=== PATIENT | male | born 1970 | race Caucasian/White ===

== ENCOUNTER 2019-11-26 09:13 | Outpatient (CLI) | payer MEDICAID, SELFPAY ==
--- NOTE | 2019-11-26 09:30 | USCV_ITS ---
Ryan Zuniga Age: 49 Gender: M : 1970 Exam Date: 11/26/2019 09:37 Ordering Phys: Paloma Reyes MD ([email or web address]) Technologist: Terrie De Los Santos [place]am [place] [facility] [place]ication: HOCM, h/o mitral valve repair, s/p myectomy BP: / HR: 64 Rhythm: Sinus Technical Quality: Adequate MEASUREMENTS (Male / Female) Normal Values 2D ECHO LV Diastolic Diameter PLAX 4.2 cm 4.2 - 5.9 / 3.9 - 5.3 cm LV Systolic Diameter PLAX 3.5 cm LV Chamber Size 2.6 cm IVS Diastolic Thickness 2.0 cm 0.6 - 1.0 / 0.6 - 0.9 cm IVS Systolic Thickness 1.8 cm LVPW Diastolic Thickness 1.7 cm 0.6 - 1.0 / 0.6 - 0.9 cm LVPW Systolic Thickness 1.9 cm RV Chamber Size 2.4 cm LVOT Diameter 2.1 cm LV Ejection Fraction 2D Teich 35.4 % LV Ejection Fraction MOD 2C 42.9 % LV Ejection Fraction 2C AL 44.1 % LA Diameter 4.6 cm LA Width 3.1 cm LA Height 4.6 cm RA Width 3.3 cm RA Height 4.8 cm Aorta at Sinotubular Diameter 3.5 cm M-MODE LV Diastolic Diameter MM 4.4 cm 4.2 - 5.9 / 3.9 - 5.3 cm LV Systolic Diameter MM 3.2 cm LV Ejection Fraction MM Teich 53.6 % IVS Diastolic Thickness MM 1.3 cm 0.6 - 1.0 / 0.6 - 0.9 cm IVS Systolic Thickness MM 2.2 cm LVPW Diastolic Thickness MM 2.0 cm 0.6 - 1.0 / 0.6 - 0.9 cm LVPW Systolic Thickness MM 2.2 cm RV Diastolic Diameter MM 1.9 cm Aortic Annulus Diameter 4.0 cm LA Ao Ratio MM 1.1 MV E Point Septal Separation 0.6 cm DOPPLER AV Peak Velocity 162.0 cm/s LVOT Peak Velocity 163.0 cm/s AV Area Cont Eq vti 4.0 cm squared AV Area Cont Eq pk 3.4 cm squared MV Area PHT 5.8 cm squared Mitral E to A Ratio 1.1 MV E' Velocity 6.0 cm/s Mitral E to MV E' Ratio 20.3 Mitral E to LV E' Lateral Ratio 16.0 Mitral E to LV E' Septal Ratio 28.4 TR Peak Velocity 269.2 cm/s TR Peak Gradient 29.0 mmHg TR Mean Velocity 193.9 cm/s TR Mean Gradient 17.0 mmHg TR Velocity Time Integral 68.7 cm TV Peak E Velocity 60.0 cm/s Right Atrial Pressure 5.0 mmHg Pulmonary Artery Systolic Pressu 34.0 mmHg PV Peak Velocity 88.0 cm/s RV Acceleration Time 0.1 s RV Ejection Time 0.3 s RV AcT/ET 0.4 FINDINGS Left Ventricle Normal left ventricular cavity size and systolic function. Left ventricular ejection fraction is estimated at 70-75 %. There is severe concentric left ventricular hypertrophy. No regional wall motion abnormalities. Abnormal septal motion consistent with conduction abnormality/ post op state. Grade II diastolic dysfunction, moderately elevated filling pressures. Right Ventricle Normal right ventricular size and systolic function. Right ventricular systolic pressure 34 mmHg. ICD wire visualized in the right ventricle. Right Atrium Normal right atrial size. Right atrial pressure estimated at 3 mmHg. ICD wire in the right atrial cavity. Left Atrium Mildly increased left atrial size. Mitral Valve Thickened and fixed posterior mitral valve leaflet consistent with previous repair with Gilberto stitch (03/11/2017). No systolic anterior motion of mitral valve leaflets. No mitral valve stenosis. Mild mitral valve regurgitation. Aortic Valve Structurally normal trileaflet aortic valve. No aortic valve stenosis. Left ventricular outflow tract gradient of 52 mmHg with Valsalva. Mild aortic valve regurgitation. Tricuspid Valve Structurally normal tricuspid valve. Trace tricuspid valve regurgitation. Pulmonic Valve Structurally normal pulmonic valve. No pulmonary valve stenosis. Trace pulmonary valve regurgitation. Pericardium No pericardial effusion. Aorta Upper normal sized aortic root and normal sized proximal ascending aorta. CONCLUSIONS 1. Normal left ventricular cavity size and systolic function. Left ventricular ejection fraction is estimated at 70-75 %. There is severe concentric left ventricular hypertrophy. No regional wall motion abnormalities. Grade II diastolic dysfunction, moderately elevated filling pressures. 2. Previous mitral valve repair with mild mitral valve regurgitation. 3. Provoked left ventricular outflow tract gradient of 52 mmHg. Mild aortic valve regurgitation. 4. Pulmonary artery pressure estimated at 34 mmHg. 5. No prior similar studies to compare. Paloma Reyes MD (Electronically Signed) Final Date: 29 November 2019 17:36 S
== END 2019-11-26 09:14 | disposition home or self-care (01) ==
LOC: RAD 09:16
PROVIDERS: Family Provider Nurse Practitioner Family; PCP Nurse Practitioner Family; Visit Provider Internal Medicine Cardiovascular Disease
DX: I42.2 Other hypertrophic cardiomyopathy (principal); Z98.890 Other specified postprocedural states; I51.81 Takotsubo syndrome; Z95.2 Presence of prosthetic heart valve; I35.1 Nonrheumatic aortic (valve) insufficiency
CPT/HCPCS: 93306

== ENCOUNTER → 2020-02-06 14:56 | Outpatient (BNVA) | payer MEDICAID, SELFPAY | PROVIDERS: Family Provider Nurse Practitioner Family; PCP Nurse Practitioner Family; Referring Provider Nurse Practitioner Family; Visit Provider Dermatology | DX: D48.5 Neoplasm of uncertain behavior of skin (principal); D23.9 Other benign neoplasm of skin, unspecified; L82.1 Other seborrheic keratosis; F17.210 Nicotine dependence, cigarettes, uncomplicated | CPT/HCPCS: 99203; 99204 ==

== ENCOUNTER → 2020-03-12 13:01 | Outpatient (BNVA) | payer MEDICAID, SELFPAY | PROVIDERS: Family Provider Nurse Practitioner Family; PCP Nurse Practitioner Family; Visit Provider Dermatology | DX: D48.9 Neoplasm of uncertain behavior, unspecified (principal) | CPT/HCPCS: 88304 ==

== ENCOUNTER 2020-09-24 20:00 | Outpatient (CLI) | payer MEDICAID, SELFPAY | END 2020-09-24 20:01 | disposition home or self-care (01) | LOC: SLEEP 09-25 09:37 | PROVIDERS: Family Provider Nurse Practitioner Family; PCP Nurse Practitioner Family; Visit Provider Internal Medicine Cardiovascular Disease | DX: G47.33 Obstructive sleep apnea (adult) (pediatric) (principal) | CPT/HCPCS: 95810 ==

== ENCOUNTER → 2021-02-25 16:00 | Outpatient (BNVA) | payer MEDICAID, SELFPAY | PROVIDERS: PCP Nurse Practitioner Family; Visit Provider Internal Medicine Cardiovascular Disease | DX: I42.2 Other hypertrophic cardiomyopathy (principal); G47.33 Obstructive sleep apnea (adult) (pediatric); I50.9 Heart failure, unspecified; Z79.01 Long term (current) use of anticoagulants; Z95.2 Presence of prosthetic heart valve | CPT/HCPCS: 85610 ==

== ENCOUNTER → 2021-03-11 10:00 | Outpatient (BNVA) | payer MEDICAID, SELFPAY | PROVIDERS: PCP Nurse Practitioner Family; Visit Provider Internal Medicine Cardiovascular Disease | DX: Z79.01 Long term (current) use of anticoagulants (principal); Z95.2 Presence of prosthetic heart valve | CPT/HCPCS: 85610 ==

== ENCOUNTER → 2021-04-08 08:36 | Outpatient (BNVA) | payer MEDICAID, SELFPAY | PROVIDERS: PCP Nurse Practitioner Family; Visit Provider Internal Medicine Cardiovascular Disease | DX: Z79.01 Long term (current) use of anticoagulants (principal); Z95.2 Presence of prosthetic heart valve | CPT/HCPCS: 85610 ==

== ENCOUNTER → 2021-10-15 13:48 | Outpatient (BNVA) | payer MEDICAID, SELFPAY | PROVIDERS: PCP Nurse Practitioner Family; Visit Provider Internal Medicine Cardiovascular Disease | DX: Z45.02 Encounter for adjustment and management of automatic implantable cardiac defibrillator (principal) ==

== ENCOUNTER → 2022-02-03 16:00 | Outpatient (BNVA) | payer MEDICARE, MEDICAID, SELFPAY | PROVIDERS: PCP Nurse Practitioner Family; Visit Provider Internal Medicine Cardiovascular Disease | DX: Z95.2 Presence of prosthetic heart valve (principal); R55 Syncope and collapse; Z95.810 Presence of automatic (implantable) cardiac defibrillator; I44.7 Left bundle-branch block, unspecified; I25.10 Atherosclerotic heart disease of native coronary artery without angina pectoris; R06.02 Shortness of breath; I42.2 Other hypertrophic cardiomyopathy; I11.0 Hypertensive heart disease with heart failure; I50.9 Heart failure, unspecified; G47.33 Obstructive sleep apnea (adult) (pediatric); F17.210 Nicotine dependence, cigarettes, uncomplicated | CPT/HCPCS: 80053; 83735; 83880; 85025; 99214 ==

== ENCOUNTER → 2022-02-10 10:29 | Outpatient (BNVA) | payer MEDICARE, MEDICAID, SELFPAY | PROVIDERS: PCP Nurse Practitioner Family; Visit Provider Internal Medicine Cardiovascular Disease | DX: Z45.02 Encounter for adjustment and management of automatic implantable cardiac defibrillator (principal) | CPT/HCPCS: 93283 ==

== ENCOUNTER 2022-02-18 11:52 | Outpatient (CLI) | payer MEDICARE, MEDICAID, SELFPAY ==
[2022-02-18 12:44] LABS: Basophils # 0.1 10^3/uL (0.0-0.1); Basophils % 0.9 %; Eosinophils # 0.1 10^3/uL (0.0-0.8); Eosinophils % 1.6 %; Hematocrit 37.6 % (42.0-52.0); Hemoglobin 11.8 g/dL (11.7-16.6); Lymphocytes % 10.8 %; Mean Corpuscular HGB Conc 31.4 g/dL (30.0-36.0); Mean Corpuscular Hemoglobin 23.7 pg (28.0-34.0); Mean Corpuscular Volume 75.7 fl (80-94); Mean Platelet Volume 10.6 fL (7.4-10.4); Monocytes # 1.3 10^3/uL (0.2-0.9); Monocytes % 14.2 %; Neutrophils % 71.9 %; Nucleated Red Blood Cells % 0 %; Platelet Count 331 10^3/cmm (130-400); Red Blood Count 4.97 10^6/uL (4.1-5.3); Red Cell Distribution Width 18.9 % (12.1-15.1); White Blood Count 8.9 10^3/uL (4.0-10.0)
[2022-02-18 13:13] LABS: Alanine Aminotransferase 40 U/L (0-41); Alkaline Phosphatase 72 U/L (40-130); Anion Gap 15.9 (5-19); Aspartate Amino Transferase 49 U/L (0-40); Blood Urea Nitrogen 5 mg/dL (6-20); Calcium 9.2 mg/dL (8.5-10.5); Carbon Dioxide 25 mmol/L (22-29); Chloride 96 mmol/L (98-107); Globulin 3.7 g/dL (1.3-4.6); Glomerular Filtration Rate 70.6 mL/min (90-130); Glucose 104 mg/dL (65-115); Magnesium 2.2 mg/dL (1.7-2.3); NT Pro B Type Natriuretic Pept 704 pg/mL (0-125); Osmolality Calculated 272 mOsm/kg (285-295); Potassium 4.9 mmol/L (3.5-5.1); Sodium 132 mmol/L (136-145); Total Bilirubin 0.6 mg/dL (0.15-1.2); Total Protein 7.7 g/dL (6.6-8.7)
== END 2022-02-18 11:53 | disposition home or self-care (01) ==
LOC: LAB 12:03
PROVIDERS: PCP Nurse Practitioner Family; Visit Provider Internal Medicine Cardiovascular Disease
DX: I25.10 Atherosclerotic heart disease of native coronary artery without angina pectoris (principal); I44.7 Left bundle-branch block, unspecified; R55 Syncope and collapse; Z95.2 Presence of prosthetic heart valve; Z95.810 Presence of automatic (implantable) cardiac defibrillator
CPT/HCPCS: 36415; 80053; 83735; 83880; 85025

== ENCOUNTER → 2022-03-03 14:29 | Outpatient (BNVA) | payer MEDICARE, MEDICAID, SELFPAY | PROVIDERS: PCP Nurse Practitioner Family; Visit Provider Nurse Practitioner Family | DX: I42.2 Other hypertrophic cardiomyopathy (principal); Z95.810 Presence of automatic (implantable) cardiac defibrillator; M96.89 Other intraoperative and postprocedural complications and disorders of the musculoskeletal system | CPT/HCPCS: 99213; 99214 ==

== ENCOUNTER 2022-03-18 14:59 | Outpatient (CLI) | payer MEDICARE, MEDICAID, SELFPAY ==
--- NOTE | 2022-03-18 15:00 | CTR_ITS ---
PROCEDURE INFORMATION: Exam: CT Chest Without Contrast; Diagnostic Exam date and time: 03/18/2022 3:13 PM Age: 51 years old Clinical indication: Sternal or substernal pain; Prior surgery; Surgery date: 6+ months; Patient HX: Cabg, pacemaker. ; Additional info: Sternal non union, protruding sternal wires; Cabg 1 year ago. TECHNIQUE: Imaging protocol: Diagnostic computed tomography of the chest without contrast. Total images: 453 Radiation optimization: All CT scans at this facility use at least one of these dose optimization techniques: automated exposure control; mA and/or kV adjustment per patient size (includes targeted exams where dose is matched to clinical indication); or iterative reconstruction. COMPARISON: CR XR chest 2V* [id number] 12/17/2020 4:00 PM RADIATION DOSE METRICS: Total DLP (mGy-cm): 872.81 FINDINGS: Tubes, catheters and devices: AICD projects in satisfactory location. Mitral valve prosthesis. Lungs: Benign granulomatous disease of the lung is noted. No acute focal pulmonary opacities are detected. Pleural spaces: Unremarkable. No pneumothorax. No pleural effusion. Heart: Prior coronary artery bypass grafting. Lymph nodes: Calcified left hilar nodes. Vasculature: Unremarkable. No aortic aneurysm. Spleen: Incidental splenic granuloma. Bones/joints: 8 mm Diastasis of lower sternotomy with thin cortical margin and sternotomy wires intact and no evidence of osseous erosions nor adjacent inflammatory changes. Sternotomy wires appear intact at manubrium but extending through skin surface. 4 mm diastasis without corticated margin but no osseous erosions nor adjacent inflammatory changes. Soft tissues: Unremarkable. CT/CT chest wo con [id number] IMPRESSION: 1. No acute focal pulmonary opacities are detected. 2. 8 mm Diastasis of lower sternotomy with thin cortical margin and sternotomy wires intact and no evidence of osseous erosions nor adjacent inflammatory changes. 3. Sternotomy wires appear intact at manubrium but extending through skin surface. 4 mm diastasis without corticated margin but no osseous erosions nor adjacent inflammatory changes.
== END 2022-03-18 15:00 | disposition home or self-care (01) ==
LOC: RAD 15:00
PROVIDERS: PCP Nurse Practitioner Family; Visit Provider Nurse Practitioner Family
DX: T81.89XA Other complications of procedures, not elsewhere classified, initial encounter (principal)
CPT/HCPCS: 71250

== ENCOUNTER 2022-04-14 07:57 | Outpatient (CLI) | payer MEDICARE, MEDICAID, SELFPAY ==
--- NOTE | 2022-04-14 08:00 | USCV_ITS ---
Ryan Zuniga Age: 51 Gender: M : 1970 Exam Date: 04/14/2022 08:18 Ordering Phys: Paloma Reyes MD ([email or web address]) Technologist: MC [place]am [place] [facility] [place]ication: HISTORY OF MITVAL VALVE REPLACEMENT , s/p surgery for hypertrophic obstructive cardiomyopathy BP: 160 / 92 HR: 49 Rhythm: Sinus Technical Quality: Adequate MEASUREMENTS (Male / Female) Normal Values 2D ECHO LVOT Diameter 2.0 cm LV Ejection Fraction MOD 2C 65.9 % LV Ejection Fraction 2C AL 72.2 % LA Diameter 4.4 cm LA Width 3.8 cm LA Height 4.5 cm RA Width 3.8 cm RA Height 5.2 cm Aorta at Sinotubular Diameter 2.8 cm M-MODE Aortic Annulus Diameter 3.4 cm LA Ao Ratio MM 1.3 MV E Point Septal Separation 0.6 cm DOPPLER AV Peak Velocity 222.3 cm/s LVOT Peak Velocity 126.0 cm/s AV Area Cont Eq vti 1.9 cm squared AV Area Cont Eq pk 1.8 cm squared MV Peak Velocity 199.0 cm/s MV Area PHT 3.4 cm squared Mitral E to A Ratio 0.8 MV E' Velocity 71.0 cm/s Mitral E to MV E' Ratio 19.4 Mitral E to LV E' Lateral Ratio 16.9 Mitral E to LV E' Septal Ratio 23.1 TR Peak Velocity 137.4 cm/s TR Peak Gradient 7.6 mmHg TR Mean Velocity 111.9 cm/s TR Mean Gradient 5.2 mmHg TR Velocity Time Integral 32.2 cm TV Peak E Velocity 69.0 cm/s Right Atrial Pressure 8.0 mmHg Pulmonary Artery Systolic Pressu 15.6 mmHg PV Peak Velocity 110.0 cm/s RV Acceleration Time 0.1 s RV Ejection Time 0.3 s RV AcT/ET 0.4 FINDINGS Left Ventricle Normal left ventricular cavity size increased left ventricular wall thickness. Normal left ventricular systolic function. Left ventricular ejection fraction is estimated at 70 %. No diagnostic regional wall motion abnormalities. Abnormal septal motion. Right Ventricle Pacemaker wire visualized in the right ventricle. Normal right ventricular systolic pressure. Right Atrium Normal right atrial size. Left Atrium Mildly increased left atrial size. Mitral Valve Mitral valve mechanical prosthesis (27 mm [employer] on-x). Mitral valve mean gradient is 8.3 mmHg. No significant valvular or perivalvular regurgitation. Aortic Valve Aortic valve not well visualized. Probably trileaflet aortic valve. No aortic valve stenosis. Trace aortic valve regurgitation. Peak velocity across LVOT of 2 m/s and peak gradient of 17 mmHg with Valsalva. Tricuspid Valve Structurally normal tricuspid valve. Trace tricuspid valve regurgitation. Pulmonic Valve Pulmonic valve not well visualized. No pulmonary valve stenosis. Pericardium No pericardial effusion. Aorta Normal size aortic root and proximal ascending aorta. IVC Inferior vena cava not visualized. CONCLUSIONS 1. Normal left ventricular cavity size increased left ventricular wall thickness. Normal left ventricular systolic function. Left ventricular ejection fraction is estimated at 70 %. No diagnostic regional wall motion abnormalities. Abnormal septal motion. 2. Mitral valve mechanical prosthesis (27 mm [employer]ife on-x). Mitral valve mean gradient is 8.3 mmHg. 3. Peak velocity across LVOT of 2 m/s and peak gradient of 17 mmHg with Valsalva. 4. When compared to echocardiogram dated 11/26/2019, there is mechanical mitral valve now and peak velocity across left ventricular outflow tract has gone down. Paloma Reyes MD (Electronically Signed) Final Date: 22 April 2022 12:58 S
== END 2022-04-14 07:58 | disposition home or self-care (01) ==
LOC: RAD 07:58
PROVIDERS: PCP Nurse Practitioner Family; Visit Provider Internal Medicine Cardiovascular Disease
DX: I42.2 Other hypertrophic cardiomyopathy (principal); R06.02 Shortness of breath; Z95.2 Presence of prosthetic heart valve
CPT/HCPCS: 93306

== ENCOUNTER → 2022-09-02 11:58 | Outpatient (BNVA) | payer MEDICARE, MEDICAID, SELFPAY | PROVIDERS: PCP Nurse Practitioner Family; Visit Provider Internal Medicine Cardiovascular Disease | DX: Z95.2 Presence of prosthetic heart valve (principal); Z95.810 Presence of automatic (implantable) cardiac defibrillator; G47.33 Obstructive sleep apnea (adult) (pediatric); I44.7 Left bundle-branch block, unspecified; J44.9 Chronic obstructive pulmonary disease, unspecified; I25.10 Atherosclerotic heart disease of native coronary artery without angina pectoris; I42.2 Other hypertrophic cardiomyopathy; I10 Essential (primary) hypertension; F17.210 Nicotine dependence, cigarettes, uncomplicated | CPT/HCPCS: 99213 ==

== ENCOUNTER → 2022-09-07 08:50 | Outpatient (BNVA) | payer MEDICARE, MEDICAID, SELFPAY | PROVIDERS: PCP Nurse Practitioner Family; Visit Provider Internal Medicine Cardiovascular Disease | DX: Z45.02 Encounter for adjustment and management of automatic implantable cardiac defibrillator (principal) | CPT/HCPCS: 93296 ==

== ENCOUNTER → 2023-05-18 16:46 | Outpatient (BNVA) | payer MEDICARE, MEDICAID, SELFPAY | PROVIDERS: PCP Nurse Practitioner Family; Visit Provider Internal Medicine | DX: Z45.02 Encounter for adjustment and management of automatic implantable cardiac defibrillator (principal) | CPT/HCPCS: 93296 ==

== ENCOUNTER 2023-07-13 10:34 | Outpatient (CLI) | payer MEDICARE, MEDICAID, SELFPAY ==
--- NOTE | 2023-07-13 10:40 | CT_ITS ---
WS: [id number] LDCT LUNG CANCER SCREENING TECHNIQUE: Noncontrast CT of the chest with coronal and sagittal reformatted images. CLINICAL INFORMATION: NICOTINE DEPENDENCE, CIGARETTES COMPARISON: CT chest 03/18/2022 DLP: 81.81 mGy.cm DIvol: Mean CTDIvol: 1.60 (mGy) All CT scans at [facility] use at least one of these dose optimization techniques: automat ed exposure control; mA and/or kV adjustment per patient size (includes targeted exams where dose is matched to clinical indication); or iterative reconstruction. FINDINGS: A few calcified granulomas. A few tree-in-bud opacities in the RIGHT upper lobe posterior l aterally along the fissure are likely inflammatory. A few hazy groundglass opacities in the LEFT constanza hilar upper lobe likely inflammatory. Pleural parenchymal nodular scarring in the LEFT lower lobe ant eriorly along the diaphragm with nodular opacity measuring 1.4 cm. This appears new since 2021. Recom mend 3-month follow-up. Tiny subcentimeter nodule LEFT lower lobe Cardiac pacer. Sternotomy. No axillary lymphadenopathy. CABG. Coronary calcification. Mitral valve pr osthesis. No mediastinal or hilar lymphadenopathy. Adrenal glands are normal. Hypertrophic changes th oracic spine. IMPRESSION: Pleural parenchymal scarring in the LEFT lower lobe anteriorly at the diaphragm with a sm all nodular opacity measuring 1.4 cm. This appears new since 2021. Recommend 3-month CT follow-up to confirm stability since this is new from previous. CT/CT lung screening [id number] LUNG-RADS: 4A-Probably Suspicious FOLLOW UP: 3 Month LDCT
== END 2023-07-13 10:35 | disposition home or self-care (01) ==
LOC: RAD 10:35
PROVIDERS: PCP Nurse Practitioner Family; Visit Provider Nurse Practitioner Family
DX: Z12.2 Encounter for screening for malignant neoplasm of respiratory organs (principal); F17.210 Nicotine dependence, cigarettes, uncomplicated; R91.8 Other nonspecific abnormal finding of lung field
CPT/HCPCS: 71271

== ENCOUNTER 2023-08-25 08:57 | Outpatient (CLI) | payer MEDICARE, MEDICAID, SELFPAY ==
--- NOTE | 2023-08-25 09:48 | CTR_ITS ---
PROCEDURE INFORMATION: Exam: CT Lumbar Spine Without Contrast Exam date and time: 08/25/2023 10:09 AM Age: 53 years old Clinical indication: Other: Chronic lbp; Additional info: Lumbar ddd TECHNIQUE: Imaging protocol: Computed tomography of the lumbar spine without contrast. Radiation optimization: All CT scans at this facility use at least one of these dose optimization techniques: automated exposure control; mA and/or kV adjustment per patient size (includes targeted exams where dose is matched to clinical indication); or iterative reconstruction. COMPARISON: CR XR lumbar spine 2-3V* [id number] 12/01/2022 10:36 AM RADIATION DOSE METRICS: Total DLP (mGy-cm): 625.94 FINDINGS: Bones/joints: The lumbar vertebral body heights are maintained. The lumbar vertebral bodies are normally aligned. L1-L2: Broad concentric disc bulge and bilateral facet arthropathy contributing to mild central canal stenosis. Mild left and moderate right neuroforaminal narrowing L2-L3: . Broad concentric disc bulge and bilateral facet arthropathy contributing to mild central canal stenosis. Mild bilateral neuroforaminal narrowing. L3-L4: Broad concentric disc bulge and bilateral facet arthropathy contributing to mild central canal stenosis. Mild left and [id number] right neuroforaminal narrowing. L4-L5: Broad concentric disc bulge and bilateral facet arthropathy contributing to mild central canal stenosis. Moderate bilateral neuroforaminal narrowing. L5-S1: Broad concentric disc bulge without any significant central canal stenosis. Moderate bilateral neuroforaminal narrowing. Soft tissues: Calcified plaque is seen involving the abdominal aorta. CT/CT lumbar spine wo con* [id number] IMPRESSION: Multilevel degenerative changes of the lumbar spine as outlined above. If symptoms persist, consider further evaluation with MRI, if MRI is clinically safe to obtain.
== END 2023-08-25 08:58 | disposition home or self-care (01) ==
LOC: RAD 08:57
PROVIDERS: PCP Nurse Practitioner Family; Visit Provider General Practice
DX: M51.36 Other intervertebral disc degeneration, lumbar region (principal)
CPT/HCPCS: 72131

== ENCOUNTER → 2023-08-29 11:30 | Outpatient (BNVA) | payer MEDICARE, MEDICAID, SELFPAY | PROVIDERS: PCP Nurse Practitioner Family; Visit Provider Internal Medicine Cardiovascular Disease | DX: I42.2 Other hypertrophic cardiomyopathy (principal); I44.7 Left bundle-branch block, unspecified; Z95.810 Presence of automatic (implantable) cardiac defibrillator; Z95.2 Presence of prosthetic heart valve; J44.9 Chronic obstructive pulmonary disease, unspecified; G47.33 Obstructive sleep apnea (adult) (pediatric); Z98.890 Other specified postprocedural states; F17.210 Nicotine dependence, cigarettes, uncomplicated; Z79.01 Long term (current) use of anticoagulants; Z79.82 Long term (current) use of aspirin | CPT/HCPCS: 99213 ==

== ENCOUNTER → 2024-02-07 11:00 | Outpatient (BNVA) | payer MEDICARE, MEDICAID, SELFPAY | PROVIDERS: PCP Nurse Practitioner Family; Visit Provider Internal Medicine Cardiovascular Disease | DX: Z95.2 Presence of prosthetic heart valve (principal); Z95.810 Presence of automatic (implantable) cardiac defibrillator; I42.2 Other hypertrophic cardiomyopathy; Z98.890 Other specified postprocedural states; F17.210 Nicotine dependence, cigarettes, uncomplicated | CPT/HCPCS: 99214 ==

== ENCOUNTER → 2024-02-09 09:09 | Outpatient (BNVA) | payer MEDICARE, MEDICAID, SELFPAY | PROVIDERS: PCP Nurse Practitioner Family; Visit Provider Internal Medicine | DX: Z45.02 Encounter for adjustment and management of automatic implantable cardiac defibrillator (principal) | CPT/HCPCS: 93296 ==

== ENCOUNTER 2024-02-17 07:35 | Outpatient (CLI) | payer MEDICARE, MEDICAID, SELFPAY ==
--- NOTE | 2024-02-17 06:36 | XACV_ITS ---
Gender: Male : 1970 Any Known Allergies: No known allergies Exam Priority: Routine Procedure(s): Procedure Description: Diagnostic procedure Procedure Description: Miscellaneous Ryan CHATTERJEE; Diagnostic Cath Status: Elective Diagnostic Findings * Left subclavian venogram was performed by injecting 20 cc of Omnipaque into the anterior cubital vein on the left side. The pictures were taken in the and AP view. * The left axillary, left subclavian, the innominate and SVC were found to be patent. There was no signs of any venous obstruction. Conclusions 1. Patent left subclavian vein draining into the innominate and SVC. Procedural Details Pre-Procedure Time Out. Identified patient by full name and date of as verbalized by the patient/guarantor. Does the consent match the physician's order: Yes. Accurate & Complete Informed Consent: Yes. Inpatient/Outpatient History & Physical on Chart: Yes. If H&P is completed, is and addenduem needed: No; If yes, is the addendum complete: N/A. Visualize and Verify Site with Patient/Guarantor: N/A. Relevant Radiology Images available: Yes. Pre-op teaching completed and patient verbalized understanding. The risks, benefits, and alternatives of sedation and/or procedure were discussed by physician. The patient agrees to continue. Procedure started. IV Site on Arrival: 20 gauge in the left anticubital. 20 mL contrast injection was performed for subclavian visualization. Vital chart was stopped. Physician scrubbed out. Procedure completed. Patient transferred by ambulation to CPRU. I, the attending physician, have reviewed and verified all procedure medications. Yes, all medications given per verbal order History/Risk Factors Hypertension: No Dyslipidemia: No Peripheral Arterial Disease (PAD): No Myocardial Infarction (ID): No Obesity: No Renal Disease: No Prior Interventions PCI: No CABG: No Valve Surgery: No Report Signatures Finalized by Dr Leilani Davis MD [facility] on 02/19/2024 08:01 PM
[2024-02-17 07:51] VITALS: BP 151/89; PULSE 67; RESP 16; TEMP 36.6; O2SAT 99; BMI 31.0
[2024-02-17 08:12] LABS: Anion Gap 12.1 (5-19); Blood Urea Nitrogen 9 mg/dL (6-20); Carbon Dioxide 29 mmol/L (22-29); Chloride 99 mmol/L (98-107); Creatinine Clr Calc Pharmacy 138.9956; Glucose 96 mg/dL (65-115); Osmolality Calculated 281 mOsm/kg (285-295); Potassium 4.1 mmol/L (3.5-5.1); Sodium 136 mmol/L (136-145)
--- NOTE | 2024-02-17 09:24 | W.PM.OPSUD ---
Surgery/Procedure H&P Update DATE OF PROCEDURE: February 17, 2024 DATE H&P PERFORMED: 02/07/24 H&P UPDATE INFORMATION: I have reviewed H&P completed within last 30 days, I have examined patient prior to procedure and No changes to prior documentation PREOP DIAGNOSIS: Pacemaker JACINTO, lead malfunction, subclavian vein patency PRIMARY INDICATION FOR PROCEDURE: To determine the patency of the left subclavian vein PLANNED PROCEDURE: Operation Date: 02/17/24 07:50 Proposed Procedures p SubClavian venogram [id number], [id number], T82.598A(Not Applicable) - Leilani Davis MD
[2024-02-17 09:40] VITALS: BP 140/85; PULSE 69; RESP 16; TEMP 36.6; O2SAT 93
== END 2024-02-17 07:36 | disposition home or self-care (01) ==
PROVIDERS: PCP Nurse Practitioner Family; Visit Provider Internal Medicine Cardiovascular Disease
DX: T82.598A Other mechanical complication of other cardiac and vascular devices and implants, initial encounter (principal); J44.9 Chronic obstructive pulmonary disease, unspecified; G47.33 Obstructive sleep apnea (adult) (pediatric); Z79.82 Long term (current) use of aspirin; Z79.01 Long term (current) use of anticoagulants; I10 Essential (primary) hypertension; I25.10 Atherosclerotic heart disease of native coronary artery without angina pectoris; F17.210 Nicotine dependence, cigarettes, uncomplicated; Y82.8 Other medical devices associated with adverse incidents
CPT/HCPCS: 36005; 36415; 80048; Q9967

== ENCOUNTER 2024-03-01 08:30 | Outpatient (CLI) | payer MEDICARE, MEDICAID, SELFPAY ==
--- NOTE | 2024-03-01 08:31 | CTR_ITS ---
PROCEDURE INFORMATION: Exam: CT Chest With Contrast; Diagnostic Exam date and time: 03/01/2024 8:46 AM Age: 53 years old Clinical indication: Condition or disease; Lung condition and disease; Pulmonary nodule, solitary; Prior surgery; Surgery date: 6+ months; Surgery type: Pacemaker, open heart; Additional info: Lung nodule TECHNIQUE: Imaging protocol: Diagnostic computed tomography of the chest with contrast. Radiation optimization: All CT scans at this facility use at least one of these dose optimization techniques: automated exposure control; mA and/or kV adjustment per patient size (includes targeted exams where dose is matched to clinical indication); or iterative reconstruction. Contrast material: OMNI 350; Contrast volume: 100 ml; Contrast route: INTRAVENOUS (IV); COMPARISON: CT lung screening [id number] 07/13/2023 10:45 AM RADIATION DOSE METRICS: Total DLP (mGy-cm): 495.31 FINDINGS: Lungs: Calcified granuloma in the right mid lung. The minimal left-sided ground-glass opacities present previously have resolved. The mild nodular opacity which had been present in the anterior left lung base (4-54) is improving. Only a very faint infiltrate persists versus a solid appearance seen previously. Pleural spaces: Unremarkable. No pneumothorax. No pleural effusion. Heart: Unremarkable. No cardiomegaly. No pericardial effusion. Lymph nodes: Unremarkable. No enlarged lymph nodes. Vasculature: Unremarkable. No aortic aneurysm. Bones/joints: Unremarkable. No acute fracture. Soft tissues: Unremarkable. CT/CT chest w con* [id number] IMPRESSION: The previous left-sided infiltrates and nodules have resolved or improved.
[2024-03-01] MEDS: iohexol 350 mg/mL 500 mL Btl (per mL) IV (08:51)
== END 2024-03-01 08:31 | disposition home or self-care (01) ==
PROVIDERS: PCP Nurse Practitioner Family; Visit Provider Nurse Practitioner Family
DX: R91.1 Solitary pulmonary nodule (principal); J84.10 Pulmonary fibrosis, unspecified
CPT/HCPCS: 71260

== ENCOUNTER → 2024-05-23 09:04 | Outpatient (BNVA) | payer MEDICARE, MEDICAID, SELFPAY | PROVIDERS: PCP Nurse Practitioner Family; Visit Provider Internal Medicine Cardiovascular Disease | DX: Z45.018 Encounter for adjustment and management of other part of cardiac pacemaker (principal) | CPT/HCPCS: 93296 ==

== ENCOUNTER 2024-05-25 10:02 | Emergency (ER) | payer MEDICARE, MEDICAID, SELFPAY ==
[2024-05-25 10:57] VITALS: BP 146/83; PULSE 82; RESP 17; TEMP 36.9; O2SAT 96; BMI 33.5
[2024-05-25 10:57] LABS: Basophils # 0.1 10^3/uL (0.0-0.1); Basophils % 0.7 %; Eosinophils # 0.2 10^3/uL (0.0-0.8); Eosinophils % 2.1 %; Hematocrit 36.3 % (37-53); Lymphocytes # 1.1 10^3/uL (0.8-4.8); Lymphocytes % 15.9 %; Mean Corpuscular HGB Conc 33.1 g/dL (30-55); Mean Corpuscular Hemoglobin 33.8 pg (27-33); Mean Corpuscular Volume 102.3 fl (82-101); Mean Platelet Volume 8.8 fL (7.4-10.4); Monocytes # 0.8 10^3/uL (0.2-0.9); Monocytes % 11.8 %; Neutrophils % 67.8 %; Nucleated Red Blood Cells % 0 %; Platelet Count 279 10^3/cmm (157-399); Red Blood Count 3.55 10^6/uL (3.85-5.65); White Blood Count 7.09 10^3/uL (3.29-11.43)
[2024-05-25 11:10] LABS: INR 2.26 (0.8-1.2)
[2024-05-25 11:11] LABS: Partial Thromboplastin Time 57.3 SECONDS (23.9-36.7)
[2024-05-25 11:15] LABS: Alanine Aminotransferase 20 U/L (0-41); Albumin Level 3.9 g/dL (3.5-5.2); Alkaline Phosphatase 63 U/L (40-130); Anion Gap 14.6 (5-19); Aspartate Amino Transferase 37 U/L (0-40); Blood Urea Nitrogen 10 mg/dL (6-20); Calcium 9.2 mg/dL (8.5-10.5); Carbon Dioxide 27 mmol/L (22-29); Chloride 93 mmol/L (98-107); Creatinine Clr Calc Pharmacy 168.3732; Globulin 3.3 g/dL (1.3-4.6); Glomerular Filtration Rate 140.9 mL/min (90-130); Glucose 137 mg/dL (65-115); Lipase 32 U/L (13-60); Osmolality Calculated 271 mOsm/kg (285-295); Potassium 4.6 mmol/L (3.5-5.1); Sodium 130 mmol/L (136-145); Total Bilirubin 0.6 mg/dL (0.15-1.2); Total Protein 7.2 g/dL (6.6-8.7)
--- NOTE | 2024-05-25 11:21 | CT_ITS ---
WS: [id number] CT ABDOMEN PELVIS TECHNIQUE: Contrast-enhanced CT of the abdomen and pelvis with coronal and sagittal reformatted image s. CLINICAL INFORMATION: Abdominal pain COMPARISON: None. DLP: 812.[address] scans at [facility] use at least one of these dose optimization techniques: automated e xposure control; mA and/or kV adjustment per patient size (includes targeted exams where dose is matc hed to clinical indication); or iterative reconstruction. FINDINGS: Slight induration in the subcutaneous abdominal soft tissues. RIGHT rectus sheath hematoma measuring approximately 9.2 x 2.7 x 3.1 cm. Additional smaller LEFT intr amuscular rectus sheath hematoma measuring approximately 2.1 x 1.8 x 3.1 cm AP by transverse by crani ocaudal. Slight subsegmental atelectasis in the lung bases. Slight patchy nodular groundglass infiltrate RIGHT lower lobe likely infectious or inflammatory. Hepatomegaly. Diffuse fatty infiltration of the liver. Normal portal vein and splenic vein. Normal sp diane. Tiny esophageal hiatal hernia. Normal pancreatic parenchymal enhancement. Normal portal vein an d splenic vein. Normal gallbladder. Adrenal glands are normal. Normal caliber abdominal aorta. Aortic calcification. Celiac and SMA are patent. Tiny fat-containing umbilical hernia. Normal renal parench ymal enhancement. No hydronephrosis. Small RIGHT renal cortical cyst measuring 9 mm. Disc space narrowing L5-S1. Normal appendix in the RIGHT lower quadrant. CT/CT abdomen pelvis w con* [id number] IMPRESSION: 1. Bilateral rectus sheath hematomas as described above RIGHT greater than LEF T. Largest elongated hematoma on the RIGHT measures approximately 2.7 x 3.1 x 9 .2 cm AP by transverse by craniocaudal. 2. Smaller left-sided rectus sheath hematoma somewhat difficult to visualize a nd measures 2.1 x 1.8 x 3.1 cm AP by transverse by craniocaudal 3. No intra-abdominal or retroperitoneal hemorrhage. 4. Small amount of patchy nodular infiltrate RIGHT lower lobe may be infectiou s or inflammatory. Notified Shannon Edward MD at 05/25/2024 2:49 PM.
[2024-05-25 13:58] VITALS: BP 152/92; PULSE 84; RESP 18; O2SAT 95
[2024-05-25] MEDS: iohexol 350 mg/mL 500 mL Btl (per mL) IV (14:12)
--- NOTE | 2024-05-25 15:26 | W.ED.ABDPA2 ---
HPI - Abdominal Pain General: Chief Complaint: Abdominal Pain Stated Complaint: belly Time Seen by Provider: 05/25/24 13:46 History of Present Illness: Chief complaint is abdominal bruising and pain. Patient denies any fall or trauma or injury. He and multiple other family members came down with nasal congestion cough about 2 weeks ago. He still has cough and congestion but completed a course of doxycycline. He states yesterday started having the bruising. Saw his doctor today who told him to come here. Related Data Home Medications Medication Instructions Recorded Confirmed budesonide 160 mcg-glycopyr 9 2 inh inhalation BID 01/26/21 05/25/24 mcg-formot 4.8 mcg/actuation HFA inhaler (Breztri Aerosphere) warfarin 5 mg tablet 2.5 mg PO DAILY 02/25/21 05/25/24 omeprazole 40 mg capsule,delayed 40 mg PO DAILY 02/03/22 05/25/24 release duloxetine 60 mg capsule,delayed 60 mg PO DAILY 02/07/24 05/25/24 release (Cymbalta) albuterol sulfate 90 mcg/actuation 2 puff inhalation Q5W PRN 05/25/24 05/25/24 aerosol inhaler (Ventolin HFA) Shortness Of Breath aspirin 81 mg tablet,delayed 81 mg PO DAILY 05/25/24 05/25/24 release metoprolol tartrate 50 mg tablet 50 mg PO BID 05/25/24 05/25/24 oxycodone-acetaminophen 5 mg-325 1 tab PO Q6H PRN Pain 05/25/24 05/25/24 mg tablet trazodone 100 mg tablet 100 mg PO BEDTIME 05/25/24 05/25/24 warfarin 7.5 mg tablet 7.5 mg PO DAILY 05/25/24 05/25/24 Previous Rx's Medication Instructions Recorded amlodipine 5 mg tablet 2.5 mg (1/2 x 5 mg) PO DAILY #90 03/28/23 tabs spironolactone 50 mg tablet 50 mg PO DAILY #90 tabs 01/16/24 Allergies Allergy/AdvReac Type Severity Reaction Status Date / Time No Known Allergies Allergy Verified 02/17/24 07:54 [facility] ED PFS: Medical History DIMA (obstructive sleep apnea) LBBB (left bundle branch block) GERD (gastroesophageal reflux disease) Tobacco abuse Pulmonary nodule GI bleed COPD (chronic obstructive pulmonary disease) Hypertension CAD (coronary artery disease) Hypertrophic cardiomyopathy Surgical History H/O mitral valve replacement with mechanical valve AICD (automatic cardioverter/defibrillator) present 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 Lung sounds mildly diminished but no retractions or accessory muscle use or crackles. Mild end expiratory wheezing when he coughs. Heart is regular rhythm with mechanical click. Neck is supple. No JVD. Normal conjunctiva. Moist mucous membranes. Abdomen soft. He has a large area of bruising across the lower abdomen more on the right that wraps around the side of the right abdomen. None in the back. Tenderness over the right mid abdomen with area of firmness. Legs are warm. Trace edema. No calf tenderness Course Vital Signs: Vital signs: Vital Signs Temperature 98.4 F 05/25/24 10:57 Pulse Rate 80 05/25/24 15:34 Respiratory Rate 18 05/25/24 13:58 Blood Pressure 136/66 05/25/24 15:34 Pulse Oximetry 96 05/25/24 15:34 Oxygen Delivery Me thod Room Air 05/25/24 13:58 MDM - Abdominal Pain Medical Decision Making Patient presents with symptoms most consistent with acute bronchitis. He completed course of doxycycline and steroids. Patient may have had elevated INR. He held his dose last night and his INR has come down. He states yesterday it was above 3. Patient does not know if he has mitral versus aortic valve repair but states his target is above 2.5. He feels comfortable continuing to manage his INR at home. INR was ordered here and it came back at 2.26. Patient sent for CT ab pelvis and he has a rectus sheath hematoma. The bruising appears older and less likely that the patient is having acute bleeding currently. CBC and CMP ordered. Creatinine was not elevated. Hemoglobin and platelets within normal limits. I discussed with patient he needs observation to monitor for further bleeding. Risk versus benefit favors continuing his warfarin therapy. Ongoing bleeding is unlikely based on exam and history. Patient feels comfortable observing at home and understands potential risk of further bleeding. I suspect this is likely precipitated by his coughing. I advised avoidance of activities that would exacerbate. He did have some groundglass infiltrates in the base of the lungs on the CT. Patient having improving symptoms from a respiratory standpoint and less likely to have active pneumonia. I discussed this with him and balance the risk of antibiotics further and he agrees on holding on antibiotics at this time. I advised however signs of worsening watch and return for. Patient agrees with discharge and will have him follow closely with his doctor and continue managing his INR Lab Data 05/25/24 10:49 05/25/24 10:49 Labs/Radiology: Radiology Impressions Abdomen/Pelvis CT 05/25/24 11:21 IMPRESSION: 1. Bilateral rectus sheath hematomas as described above RIGHT greater than LEFT. Largest elongated hematoma on the RIGHT measures approximately 2.7 x 3.1 x 9.2 cm AP by transverse by craniocaudal. 2. Smaller left-sided rectus sheath hematoma somewhat difficult to visualize and measures 2.1 x 1.8 x 3.1 cm AP by transverse by craniocaudal 3. No intra-abdominal or retroperitoneal hemorrhage. 4. Small amount of patchy nodular infiltrate RIGHT lower lobe may be infectious or inflammatory. Notified Shannon Edward MD at 05/25/2024 2:49 PM. Laboratory Results WBC 7.09 10^3/uL (3.29-11.43) 05/25/24 10:49 RBC 3.55 10^6/uL (3.85-5.65) L 05/25/24 10:49 Hgb 12.00 g/dL (11.27-16.99) 05/25/24 10:49 Hct 36.3 % (37-53) L 05/25/24 10:49 MCV 102.3 fl (82-101) H 05/25/24 10:49 MCH 33.8 pg (27-33) H 05/25/24 10:49 MCHC 33.1 g/dL (30-55) 05/25/24 10:49 RDW 14.0 % (12.1-15.1) 05/25/24 10:49 Plt Count 279 10^3/cmm (157-399) 05/25/24 10:49 MPV 8.8 fL (7.4-10.4) 05/25/24 10:49 Neut % (Auto) 67.8 % 05/25/24 10:49 Lymph % (Auto) 15.9 % 05/25/24 10:49 Rowan % (Auto) 11.8 % 05/25/24 10:49 Eos % (Auto) 2.1 % 05/25/24 10:49 Baso % (Auto) 0.7 % 05/25/24 10:49 Neut # (Auto) 4.80 10^3/uL (1.8-7.7) 05/25/24 10:49 Lymph # (Auto) 1.1 10^3/uL (0.8-4.8) 05/25/24 10:49 Rowan # (Auto) 0.8 10^3/uL (0.2-0.9) 05/25/24 10:49 Eos # (Auto) 0.2 10^3/uL (0.0-0.8) 05/25/24 10:49 Baso # (Auto) 0.1 10^3/uL (0.0-0.1) 05/25/24 10:49 Nucleated RBC % (auto) 0 % 05/25/24 10:49 Nucleated RBCs # 0.0 /100WBC 05/25/24 10:49 PT 26.30 SECONDS (12.1-14.9) H 05/25/24 10:49 INR 2.26 (0.8-1.2) H 05/25/24 10:49 APTT 57.3 SECONDS (23.9-36.7) H 05/25/24 10:49 Sodium 130 mmol/L (136-145) L 05/25/24 10:49 Potassium 4.6 mmol/L (3.5-5.1) 05/25/24 10:49 Chloride 93 mmol/L (98-107) L 05/25/24 10:49 Carbon Dioxide 27 mmol/L (22-29) 05/25/24 10:49 Anion Gap 14.6 (5-19) 05/25/24 10:49 BUN 10 mg/dL (6-20) 05/25/24 10:49 Creatinine 0.6 mg/dL (0.7-1.2) L 05/25/24 10:49 GFR Calculation 140.9 mL/min (90-130) H 05/25/24 10:49 Glucose 137 mg/dL (65-115) H 05/25/24 10:49 Calculated Osmolality 271 mOsm/kg (285-295) L 05/25/24 10:49 Calcium 9.2 mg/dL (8.5-10.5) 05/25/24 10:49 Total Bilirubin 0.6 mg/dL (0.15-1.2) 05/25/24 10:49 AST 37 U/L (0-40) 05/25/24 10:49 ALT 20 U/L (0-41) 05/25/24 10:49 Alkaline Phosphatase 63 U/L (40-130) 05/25/24 10:49 Total Protein 7.2 g/dL (6.6-8.7) 05/25/24 10:49 Albumin 3.9 g/dL (3.5-5.2) 05/25/24 10:49 Globulin 3.3 g/dL (1.3-4.6) 05/25/24 10:49 Lipase 32 U/L (13-60) 05/25/24 10:49 All radiology interpretation(s) finalized by discharge Discharge Plan Discharge Patient Disposition: Home Clinical Impression: Hematoma of rectus sheath Condition: Stable Prescriptions: No Action [facility] Aerosphere 160-9-4.8 mcg/actuation HFA aerosol inhaler 2 inh inhalation BID warfarin 5 mg tablet 2.5 mg PO DAILY Protocol: Dose Management Condition: Tuesday Dose/Route: 7.5 mg Instruction: 1.5 x 5 mg tablets Condition: Tuesday Dose/Route: 7.5 mg Instruction: 1.5 x 5 mg tablets Condition: Tuesday Dose/Route: 7.5 mg Instruction: 1.5 x 5 mg tablets Condition: Tuesday Dose/Route: 7.5 mg Instruction: 1.5 x 5 mg tablets Condition: Dose/Route: 7.5 mg Instruction: 1.5 x 5 mg tablets Condition: Tuesday Dose/Route: 7.5 mg Instruction: 1.5 x 5 mg tablets Condition: Tuesday Dose/Route: 7.5 mg Instruction: 1.5 x 5 mg tablets Protocol Text: Adjustment Start Date: Tuesday04/08/21 INR Value: 36.7 Seconds INR Date: 04/08/21 Recheck Date: 05/06/21 Rx Instructions: along with 7.5mg to=10mg total-current dose omeprazole 40 mg capsule,delayed release(DR/EC) 40 mg PO DAILY duloxetine [Cymbalta] 60 mg capsule,delayed release(DR/EC) 60 mg PO DAILY amlodipine 5 mg tablet 2.5 mg PO DAILY Qty: 90 3RF spironolactone 50 mg tablet 50 mg PO DAILY Qty: 90 3RF warfarin 7.5 mg tablet 7.5 mg PO DAILY Rx Instructions: along with 2.5mg to=10mg total-current dose aspirin [Aspir-81] 81 mg Tablet,Delayed Release (Dr/Ec) 81 mg PO DAILY oxycodone-acetaminophen 5-325 mg tablet 1 tab PO Q6H MDD 4 PRN (Reason: Pain) trazodone 100 mg tablet 100 mg PO BEDTIME metoprolol tartrate 50 mg tablet 50 mg PO BID albuterol sulfate [Ventolin HFA] 90 mcg/actuation HFA aerosol inhaler 2 puff INHALATION Q5W PRN (Reason: Shortness Of Breath) Discharge Orders: Discharge ED (Routine); Ordered 05/25/24 Ordered By: Brigido Marcus Referrals: Hattie Morrison FNP [Primary Care Provider] - Activity Restrictions/Additional Instructions: Follow-up with your doctor on your test results. Monitor your INR closely as discussed. Monitor for signs of continued bleeding including increasing pain or swelling, lightheadedness or dizziness. Come back if fever increased shortness of breath. Use your breathing treatments as directed. Activity restrictions as discussed to reduce risk of further bleeding. Ice pack for 10 to 15 minutes at a time as discussed to help reduce bleeding. Follow-up with your doctor next week for recheck. Coding Level of Care Code ED Precision Lens Generator for Echo Simpson
[2024-05-25 15:34] VITALS: BP 136/66; PULSE 80; O2SAT 96
== END 2024-05-25 15:35 | disposition home or self-care (01) ==
PROVIDERS: Physician Assistant; Emergency Provider Emergency Medicine; PCP Nurse Practitioner Family
DX: S36.62XA Contusion of rectum, initial encounter (principal); Z79.01 Long term (current) use of anticoagulants; F17.210 Nicotine dependence, cigarettes, uncomplicated; I25.10 Atherosclerotic heart disease of native coronary artery without angina pectoris; J44.9 Chronic obstructive pulmonary disease, unspecified; X58.XXXA Exposure to other specified factors, initial encounter
CPT/HCPCS: 12345; 36415; 74177; 80053; 83690; 85025; 85610; 85730; 99285

== ENCOUNTER 2024-07-06 10:54 | Outpatient (CLI) | payer MEDICARE, MEDICAID, SELFPAY ==
[2024-07-06 12:35] LABS: INR 5.16 (0.8-1.2)
== END 2024-07-06 10:55 | disposition home or self-care (01) ==
PROVIDERS: PCP Nurse Practitioner Family; Visit Provider Nurse Practitioner Family
DX: D68.8 Other specified coagulation defects (principal)
CPT/HCPCS: 85610

== ENCOUNTER → 2024-08-02 12:53 | Outpatient (BNVA) | payer MEDICARE, MEDICAID, SELFPAY | PROVIDERS: PCP Nurse Practitioner Family; Visit Provider Nurse Practitioner Family | DX: I42.2 Other hypertrophic cardiomyopathy (principal); I25.10 Atherosclerotic heart disease of native coronary artery without angina pectoris; I44.7 Left bundle-branch block, unspecified; Z98.890 Other specified postprocedural states; I10 Essential (primary) hypertension; J44.9 Chronic obstructive pulmonary disease, unspecified; G47.33 Obstructive sleep apnea (adult) (pediatric); Z95.810 Presence of automatic (implantable) cardiac defibrillator; Z95.2 Presence of prosthetic heart valve; F17.210 Nicotine dependence, cigarettes, uncomplicated; Z79.01 Long term (current) use of anticoagulants; I49.01 Ventricular fibrillation | CPT/HCPCS: 99214 ==

== ENCOUNTER 2024-08-09 09:13 | Outpatient (CLI) | payer MEDICARE, MEDICAID, SELFPAY ==
--- NOTE | 2024-08-09 | ECG_ITS ---
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 Interpretive Statements LEXISCAN: Procedure: At the baseline, the blood pressure was 144/75 mmHg with a heart rate of 79 bpm. The electrocardiogram showed normal sinus rhythm, left bundle branch block with non specific ST T wave changes. The Lexiscan was infused over a period of 20 seconds. A total of 0.4 mg of Lexiscan was infused. The stress phase was continued for a total of 5 minutes. Heart rate was at the end of stress phase was 90 bpm and a blood pressure of 106/78 mmHg. The EKG at the peak infusion revealed normal sinus rhythm with no significant ST-T wave changes. Sestamibi was injected 20 seconds after the Lexiscan infusion. Blood pressure at the end of recovery phase was 130/91 mmHg with a heart rate of 88 bpm. Conclusion: 1. Normal EKG response to Lexiscan infusion 2. No Lexiscan induced chest pain or cardiac arrhythmia. 3. Normal blood pressure and heart rate response. 4. Sestamibi/sestamibi perfusion scan pending; see separate report. Electronically Signed On 08-25-2024 21:46:09 CDT by Nathaniel Rogers M.D. [email or web address] [id number]
[2024-08-09 09:44] VITALS: BMI 33.3
--- NOTE | 2024-08-09 10:04 | NMCV_ITS ---
NM ledy perf SPECT r/s* [id number] Ryan Zuniga Age: 54 Gender: M : 1970 Exam Date: 08/09/2024 10:51 Ordering Phys: Beth Hahn Technologist: QUEENIE Arauz Exam Location: [facility] Indications: cp STRESS TEST Please see separate stress test report in [facility] for full findings IMAGE PROTOCOL Rest/Stress 1 Lexiscan Day Radiopharmaceutical Dose (mCi) Administration Site Administered by Rest: Tc-99m 10.8 IV Mee Bettencourt, GIFT WRAPPER Sestamibi Stress:Tc-99m 31.3 IV Mee Cabreragle, GIFT WRAPPER Sestamibi Rest: 09-Aug-2024 60 Discovery 630 Stress: 09-Aug-2024 30 Discovery 630 0.4mg Lexiscan. Supine position only as patient was unable to lay prone. SPECT RESULTS Technical Quality: Good Raw Data Analysis: Normal Image Corrections: No attenuation or motion correction applied Summed Stress Score: 0 Summed Rest Score: 1 Summed Difference Score: 0 PERFUSION FINDINGS SPECT images demonstrate homogeneous tracer distribution throughout the myocardium. FUNCTIONAL RESULTS (calculated via Gated SPECT) Stress Image LV EF (%): 62 Stress EDV (mL):160 TID: 0.85 Stress ESV (mL):61 FUNCTIONAL FINDINGS: There is normal left ventricular systolic function. IMPRESSIONS 1. Normal myocardial perfusion imaging with no evidence of ischemia 2. LV systolic function is normal Nathaniel Rogers MD (Electronically Signed) Final Date: 14 August 2024 11:06 S
[2024-08-09] MEDS: regadenoson 0.4 Mg/5 ml Syringe IVP (11:19)
[2024-08-09 12:01] VITALS: BP 145/84; PULSE 74
== END 2024-08-09 09:14 | disposition home or self-care (01) ==
LOC: CDL 09:14
PROVIDERS: PCP Nurse Practitioner Family; Visit Provider Nurse Practitioner Family
DX: I42.2 Other hypertrophic cardiomyopathy (principal); I25.10 Atherosclerotic heart disease of native coronary artery without angina pectoris; Z98.890 Other specified postprocedural states
CPT/HCPCS: 36415; 78452; 93017; 96374; A9500; J2785

== ENCOUNTER 2024-09-18 14:06 | Outpatient (CLI) | payer MEDICARE, MEDICAID, SELFPAY ==
--- NOTE | 2024-09-18 14:15 | USCV_ITS ---
Ryan Zuniga Age: 54 Gender: M : 1970 Exam Date: 09/18/2024 14:32 Ordering Phys: Beth Hahn Technologist: KATIUSKA Exam Location: [facility] [place] Indication: ICD, Defib due to VF BP: 155 / 93 HR: 69 Rhythm: Sinus Technical Quality: Adequate MEASUREMENTS (Male / Female) Normal Values 2D ECHO LV Diastolic Diameter PLAX 5.6 cm 4.2 - 5.9 / 3.9 - 5.3 cm IVS Diastolic Thickness 1.6 cm 0.6 - 1.0 / 0.6 - 0.9 cm IVS Systolic Thickness 1.9 cm LVPW Diastolic Thickness 1.2 cm 0.6 - 1.0 / 0.6 - 0.9 cm LVPW Systolic Thickness 2.1 cm LVOT Diameter 2.1 cm LV Ejection Fraction 2D Teich 50.8 % LV Ejection Fraction MOD 4C 48.5 % LV Ejection Fraction MOD 2C 59.4 % LV Ejection Fraction 2C AL 57.5 % LA Diameter 5.1 cm RA Systolic Volume 4C AL 46.2 ml RA Systolic Volume 4C MOD 44.5 ml LA Sys Volume AL 88.6 cm cubed LA Sys Volume Index AL 39.8 cm cubed/m squared Aorta at Sinotubular Diameter 2.7 cm IVC Diameter 2.0 cm M-MODE LA Ao Ratio MM 1.8 AV Cusp Separation MM 1.8 cm DOPPLER AV Peak Velocity 214.0 cm/s LVOT Peak Velocity 115.0 cm/s AV Area Cont Eq vti 2.6 cm squared AV Area Cont Eq pk 1.9 cm squared MV Peak Velocity 209.0 cm/s MV Area PHT 2.6 cm squared Mitral E to A Ratio 0.9 TR Peak Velocity 149.0 cm/s TR Peak Gradient 8.9 mmHg TV Peak E Velocity 69.0 cm/s PV Peak Velocity 120.0 cm/s FINDINGS Left Ventricle Left ventricle is normal size. Mild to moderate LVH. LV systolic function is normal with EF of 55-60%. No regional wall motion abnormalities. Right Ventricle Grossly normal. Pacemaker lead is seen. Right Atrium Normal in size Left Atrium Dilated Mitral Valve Mitral valve mechanical prosthesis. Moderately increased gradient across mitral valve of 8.2 mmHg. Mild mitral regurgitation. Aortic Valve Grossly normal. No significant stenosis or regurgitation. Tricuspid Valve Insufficient TR jet to calculate RVSP Pulmonic Valve Not well visualized Pericardium Normal Aorta Normal in size IVC Appears to be normal CONCLUSIONS Mild to moderate LVH LV systolic function is normal with EF of 55 to 60%. Left atrial dilation Mitral valve mechanical prosthesis. Moderately increased gradient across mitral valve of 8.2 mmHg. Compared to prior echocardiogram from 2021, no significant changes are seen. Nathaniel Rogers MD (Electronically Signed) Final Date: 23 Sep 2024 15:32 S
== END 2024-09-18 14:07 | disposition home or self-care (01) ==
LOC: RAD 14:07
PROVIDERS: PCP Nurse Practitioner Family; Visit Provider Nurse Practitioner Family
DX: I42.2 Other hypertrophic cardiomyopathy (principal); Z98.890 Other specified postprocedural states; Z95.810 Presence of automatic (implantable) cardiac defibrillator; R93.1 Abnormal findings on diagnostic imaging of heart and coronary circulation; Z96.89 Presence of other specified functional implants; I51.7 Cardiomegaly; I34.0 Nonrheumatic mitral (valve) insufficiency
CPT/HCPCS: 93306

== ENCOUNTER → 2024-09-25 10:06 | Outpatient (BNVA) | payer MEDICARE, MEDICAID, SELFPAY | PROVIDERS: PCP Nurse Practitioner Family; Visit Provider Internal Medicine Cardiovascular Disease | DX: I42.2 Other hypertrophic cardiomyopathy (principal); R23.3 Spontaneous ecchymoses; Z79.01 Long term (current) use of anticoagulants; Z98.890 Other specified postprocedural states; Z95.810 Presence of automatic (implantable) cardiac defibrillator; Z95.2 Presence of prosthetic heart valve; F17.210 Nicotine dependence, cigarettes, uncomplicated | CPT/HCPCS: 99214 ==

== ENCOUNTER 2024-11-16 07:59 | Outpatient (CLI) | payer OTHER, MEDICAID, SELFPAY ==
[2024-11-16 08:24] LABS: Prothrombin Time 52.70 SECONDS (12.1-14.9)
[2024-11-16 09:01] LABS: INR 5.50 (0.8-1.2)
== END 2024-11-16 08:00 | disposition home or self-care (01) ==
LOC: LAB 08:04
PROVIDERS: PCP Nurse Practitioner Family; Visit Provider Nurse Practitioner Family
DX: D68.8 Other specified coagulation defects (principal)
CPT/HCPCS: 85610

== ENCOUNTER → 2024-11-28 10:46 | Outpatient (BNVA) | payer OTHER, MEDICAID, SELFPAY | PROVIDERS: PCP Nurse Practitioner Family; Visit Provider Internal Medicine Cardiovascular Disease | DX: Z45.02 Encounter for adjustment and management of automatic implantable cardiac defibrillator (principal) | CPT/HCPCS: 93296 ==

== ENCOUNTER → 2025-04-01 09:43 | Outpatient (BNVA) | payer MEDICARE, MEDICAID, SELFPAY | PROVIDERS: PCP Nurse Practitioner Family; Visit Provider Nurse Practitioner Family | DX: I42.2 Other hypertrophic cardiomyopathy (principal); I10 Essential (primary) hypertension; F17.210 Nicotine dependence, cigarettes, uncomplicated; Z95.2 Presence of prosthetic heart valve; Z79.01 Long term (current) use of anticoagulants; Z95.810 Presence of automatic (implantable) cardiac defibrillator; Z87.74 Personal history of (corrected) congenital malformations of heart and circulatory system | CPT/HCPCS: 99213 ==

== ENCOUNTER 2025-04-18 09:15 | Emergency (ER) | payer MEDICARE, SELFPAY ==
[2025-04-18] VITALS (15 sets, daily range): BP systolic 114–159; BP diastolic 34–87; PULSE 60–82; RESP 18; TEMP 36.6–37; O2SAT 95–100
--- NOTE | 2025-04-18 09:32 | XR_ITS ---
WS: [id number] XR chest 1V portable [id number] REASON FOR EXAM: sob FINDINGS: The chest appears unchanged compared to the previous examination of 01/11/2025. Sternal sutures and previous coronary artery bypass surgery. Cardiac device of the left chest with trans left subclavian vein leads to the right ventricle. Cardiomegaly. No significant central pulmonary venous congestion. Calcified granulomas disease. No acute pulmonary parenchymal or pleural abnormality. Moderate degenerative spondylosis of the thoracic spine. XR/XR chest 1V portable [id number] IMPRESSION: Stable chest without acute abnormality.
--- NOTE | 2025-04-18 09:33 | ECG_ITS ---
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 Measurements Intervals [place] Rate: 71 P: -38 DC: 171 QRS: -21 QRSD: 231 T: 129 QT: 527 QTc: 576 Interpretive Statements ELECTRONIC ATRIAL PACEMAKER ELECTRONIC VENTRICULAR PACEMAKER PROLONGED QT INTERVAL CRITICAL TEST RESULT No previous ECG available for comparison Electronically Signed On 04-18-2025 17:21:15 BUSINESS RISK CONSULTANT by Leilani Davis M.D. [email or web address] [id number]
--- NOTE | 2025-04-18 09:39 | W.ED.GENADLT ---
HPI - General Adult General: Chief complaint: General Medical Stated complaint: generalized swelling Time Seen by Provider: 04/18/25 09:18 Source: patient Mode of arrival: ambulatory Limitations: no limitations History of Present Illness: 54-year-old male states that he has a history congestive heart failure states he had increased lower extreme edema along with some exertional dyspnea over the last 1 to 2 weeks. He denies any chest pain or fever or cough. States he is on 20 mg of Lasix. He has had some mild fatigue as well Related Data Home Medications ?Medication ?Instructions ?Recorded ?Confirmed budesonide 160 mcg-glycopyr 9 2 inh inhalation BID 01/26/21 04/18/25 mcg-formot 4.8 mcg/actuation HFA inhaler (Breztri Aerosphere) warfarin 5 mg tablet 2.5 mg PO DAILY 02/25/21 04/18/25 omeprazole 40 mg capsule,delayed 40 mg PO DAILY 02/03/22 04/18/25 release albuterol sulfate 90 mcg/actuation 2 puff inhalation Q5W PRN 05/25/24 04/18/25 aerosol inhaler (Ventolin HFA) Shortness Of Breath metoprolol tartrate 50 mg tablet 50 mg PO BID 05/25/24 04/18/25 oxycodone-acetaminophen 5 mg-325 1 tab PO Q6H PRN Pain 05/25/24 04/18/25 mg tablet trazodone 100 mg tablet 100 mg PO BEDTIME 05/25/24 04/18/25 warfarin 7.5 mg tablet 7.5 mg PO DAILY 05/25/24 04/18/25 furosemide 20 mg tablet 20 mg PO DAILY 08/02/24 04/18/25 duloxetine 60 mg capsule,delayed 60 mg PO DAILY 04/18/25 04/18/25 release Previous Rx's ?Medication ?Instructions ?Recorded spironolactone 50 mg tablet 50 mg PO DAILY #90 tabs 01/16/24 amlodipine 5 mg tablet 2.5 mg (1/2 x 5 mg) PO DAILY #90 04/01/25 tabs Allergies Allergy/AdvReac Type Severity Reaction Status Date / Time No Known Allergies Allergy Verified 04/18/25 09:25 [facility] ED PFSH: Medical History (Updated 04/18/25 @ 11:19 by Shilpi Nguyen MD) DIMA (obstructive sleep apnea) LBBB (left bundle branch block) GERD (gastroesophageal reflux disease) Tobacco abuse Pulmonary nodule GI bleed COPD (chronic obstructive pulmonary disease) Hypertension CAD (coronary artery disease) Hypertrophic cardiomyopathy Surgical History H/O mitral valve replacement with mechanical valve AICD (automatic cardioverter/defibrillator) present 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 Family History Other CAD (coronary artery disease) Cardiomyopathy Hypertension Social History Smoking and tobacco/nicotine status: current every day tobacco/nicotine user cigarettes Alcohol intake: current Alcohol intake frequency: 0-2 Drinks per Day Substance/Drug Use: never Physical Exam Const: COMMON NORMALS: no acute distress, patient oriented x3 and healthy appearing HENMT: COMMON NORMALS: normocephalic and atraumatic HEAD & SCALP: normocephalic and atraumatic Neck/C-Spine: COMMON NORMALS: full ROM and supple Chest: COMMONS NORMALS: normal inspection of the chest Resp: COMMON NORMALS: normal respiratory effort Cardio: COMMON NORMALS: regular rate RATE: regular rate Extremity: COMMON NORMALS: full ROM NARRATIVE EXTREMITY EXAM: 2+ lower extremity edema Neuro: COMMON NORMALS: patient oriented x3, moves all extremities and no focal motor deficits Psych: COMMON NORMALS: mental status grossly normal, Normal thought process present and cooperative THOUGHT PROCESS: Normal thought process present Skin: COMMON NORMALS: no rashes or lesions noted and no wounds GENERAL SKIN EXAM: no rashes or lesions noted Course Vital Signs: Vital signs: Vital Signs Temperature 97.8 F 04/18/25 11:33 Pulse Rate 72 04/18/25 11:33 Respiratory Rate 18 04/18/25 11:33 Blood Pressure 136/83 04/18/25 11:33 Pulse Oximetry 98 04/18/25 11:33 Oxygen Delivery Me thod Room Air 04/18/25 09:45 MDM - General Adult Medical Decision Making Patient presents for lower extremity edema along with some mild dyspnea does have a history of CHF he does have an elevated BNP here with lower extremity edema. Did give him IV Lasix he is diuresing here currently. He was also found to be anemic. Differential included GI bleed I did a rectal exam showed no blood in his stool. He states he had multiple teeth pulled over a week ago and is on Coumadin states he had quite a bit of bleeding anemia could be from that. Will transfuse him 2 units and admit for observation as I am transfusing and already fluid overloaded. Chest x-ray interpreted by me no signs of pulm edema spoke to hospitalist Dr. Robb and will admit EKG interpreted by me at 0936 paced rhythm heart rate [address] elevation QRS 231 QTc 550 Medical Records I reviewed the patient's medical records. Lab Data I reviewed the patient's lab results. 04/18/25 10:07 04/18/25 09:40 Radiology Impressions Chest X-Ray 04/18/25 09:32 IMPRESSION: Stable chest without acute abnormality. Laboratory Results WBC 7.59 10^3/uL (3.29-11.43) 04/18/25 09:40 RBC 2.50 10^6/uL (3.85-5.65) L 04/18/25 09:40 Hgb 6.30 g/dL (11.27-16.99) L* 04/18/25 10:07 Hct 20.8 % (37-53) L* 04/18/25 10:07 MCV 87.6 fl (82-101) 04/18/25 09:40 MCH 26.4 pg (27-33) L 04/18/25 09:40 MCHC 30.1 g/dL (30-55) 04/18/25 09:40 RDW 18.6 % (12.1-15.1) H 04/18/25 09:40 Plt Count 383 10^3/cmm (157-399) 04/18/25 09:40 MPV 10.1 fL (7.4-10.4) 04/18/25 09:40 Neut % (Auto) 75.3 % 04/18/25 09:40 Lymph % (Auto) 9.1 % 04/18/25 09:40 Leake % (Auto) 13.6 % 04/18/25 09:40 Eos % (Auto) 0.9 % 04/18/25 09:40 Baso % (Auto) 0.7 % 04/18/25 09:40 Neut # (Auto) 5.72 10^3/uL (1.8-7.7) 04/18/25 09:40 Lymph # (Auto) 0.7 10^3/uL (0.8-4.8) L 04/18/25 09:40 Leake # (Auto) 1.0 10^3/uL (0.2-0.9) H 04/18/25 09:40 Eos # (Auto) 0.1 10^3/uL (0.0-0.8) 04/18/25 09:40 Baso # (Auto) 0.1 10^3/uL (0.0-0.1) 04/18/25 09:40 Nucleated RBC % (auto) 2.1 % 04/18/25 09:40 Nucleated RBCs # 0.2 /100WBC 04/18/25 09:40 Sodium 133 mmol/L (136-145) L 04/18/25 09:40 Potassium 4.2 mmol/L (3.5-5.1) 04/18/25 09:40 Chloride 98 mmol/L (98-107) 04/18/25 09:40 Carbon Dioxide 23 mmol/L (22-29) 04/18/25 09:40 Anion Gap 16.2 (5-19) 04/18/25 09:40 BUN 15 mg/dL (6-20) 04/18/25 09:40 Creatinine 0.9 mg/dL (0.7-1.2) 04/18/25 09:40 GFR Calculation 87.9 mL/min (90-130) L 04/18/25 09:40 Glucose 111 mg/dL (65-115) 04/18/25 09:40 Calculated Osmolality 278 mOsm/kg (285-295) L 04/18/25 09:40 Calcium 8.8 mg/dL (8.5-10.5) 04/18/25 09:40 Magnesium 1.7 mg/dL (1.7-2.3) 04/18/25 10:07 Iron 14 ug/dL (59-158) L 04/18/25 10:07 TIBC 481 mcg/dl 04/18/25 10:07 % Saturation 2.9 % (20-50) L 04/18/25 10:07 Unsat Iron Binding 467 ug/dL (112-347) H 04/18/25 10:07 Total Bilirubin 0.4 mg/dL (0.15-1.2) 04/18/25 09:40 AST 21 U/L (0-40) 04/18/25 09:40 ALT 10 U/L (0-41) 04/18/25 09:40 Alkaline Phosphatase 55 U/L (40-130) 04/18/25 09:40 NT-Pro-B Natriuret Pep 4006 pg/mL (0-125) H 04/18/25 09:40 Total Protein 7.4 g/dL (6.6-8.7) 04/18/25 09:40 Albumin 3.9 g/dL (3.5-5.2) 04/18/25 09:40 Globulin 3.5 g/dL (1.3-4.6) 04/18/25 09:40 Blood Type O Positive 04/18/25 10:07 Rho(D) Type Rh positive 04/18/25 10:07 Antibody Screen Negative 04/18/25 10:07 Crossmatch See Detail 04/18/25 10:07 All radiology interpretation(s) finalized by discharge Discharge Plan Discharge Patient Disposition: Placed in Observation Clinical Impression: Anemia, CHF (congestive heart failure) Coding Level of Care Code ED Air Drill Operator for Echo Simpson
[2025-04-18] MEDS: FUROsemide 10 mg/mL SDV 10mL 60 MG IVP (09:48)
[2025-04-18 09:53] LABS: Hematocrit 21.9 % (37-53); Hemoglobin 6.60 g/dL (11.27-16.99); Mean Corpuscular HGB Conc 30.1 g/dL (30-55); Mean Corpuscular Hemoglobin 26.4 pg (27-33); Mean Corpuscular Volume 87.6 fl (82-101); Nucleated Red Blood Cells % 2.1 %; Platelet Count 383 10^3/cmm (157-399); Red Blood Count 2.50 10^6/uL (3.85-5.65); White Blood Count 7.59 10^3/uL (3.29-11.43)
[2025-04-18 10:32] LABS: Alanine Aminotransferase 10 U/L (0-41); Albumin Level 3.9 g/dL (3.5-5.2); Alkaline Phosphatase 55 U/L (40-130); Anion Gap 16.2 (5-19); Aspartate Amino Transferase 21 U/L (0-40); Blood Urea Nitrogen 15 mg/dL (6-20); Calcium 8.8 mg/dL (8.5-10.5); Carbon Dioxide 23 mmol/L (22-29); Chloride 98 mmol/L (98-107); Globulin 3.5 g/dL (1.3-4.6); Glucose 111 mg/dL (65-115); NT Pro B Type Natriuretic Pept 4006 pg/mL (0-125); Osmolality Calculated 278 mOsm/kg (285-295); Potassium 4.2 mmol/L (3.5-5.1); Sodium 133 mmol/L (136-145); Total Protein 7.4 g/dL (6.6-8.7)
[2025-04-18 10:33] LABS: Hemoglobin 6.30 g/dL (11.27-16.99)
[2025-04-18 10:34] LABS: Hematocrit 20.8 % (37-53)
[2025-04-18 10:43] LABS: Iron 14 ug/dL (59-158); Magnesium 1.7 mg/dL (1.7-2.3); Total Iron Binding Capacity 481 mcg/dl; Unsaturated Iron Binding 467 ug/dL (112-347)
--- NOTE | 2025-04-18 11:54 | PM.HP ---
Providers/Chief Complaint Admitting Physician: Dr. Shah Primary Care Provider: KERA Grey Chief Complaint: generalized swelling History of Present Illness Ryan Zuniga is a 54 year old male w/ pmhx of DIMA, LBBB, GERD, COPD, CAD, HTN, CHF, Hyperthrophic cardiomyopathy, and mitral valve replacement with mechanical valve on chronic anticoagulation of warfarin. Patient presents today with c/o increased edema w/ exertional dyspnea over 1-2wks. Patient to be admitted to hospitalist services for further medical management of care. Patient sitting up on side of the bed noted to be on RA, family present at bedside. Patient states he had six teeth removed on 04/09/2025 reports increased SOB w/ exertion for 1-2 weeks after procedure with associated signs and symptoms of dizziness, extreme edema, and hypotension. Patient reports that his home warfrain medication was stopped prior to his dental procedure on 04/09/25 and restarted on 04/13/25. He denies headache, fever, chest pain, N/V/D, black tarry stools, changes in urinary/bowel habits, or recent medication changes. While in ED a CBC, CMP, PT/INR, BNP was obtained, reviewed, and results as follows: WBC 7.59, Neut 5.72, RBC 2.50, Hgb 6.30, Hct 20.8, MCH 26.4, RDW 18.6. Na 133, K 4.2, Mag 1.7, Iron 14, TIBC 481, Saturation 2.9%. BNP 4006. Leukocyte reduced RBC, and Type and Screen ordered. While in ED patient recieved following medications: Lasix 60mg IVP, [place] 5-325 PO, RBC 2 units ordered. Review of Systems Const: Denies: fever(s), chills or body aches ENMT: Denies: oral sores, bleeding gums or nasal congestion Card: Reports: edema, swelling of feet/ankles, lightheadedness, syncope and dyspnea on exertion; Denies: chest pain or palpitations Resp: Denies: chest congestion GI: Denies: abdominal pain, nausea, vomiting, constipation or melena Neuro: Reports: dizziness; Denies: headache(s) Medications/Allergies Home Medications ?Medication ?Instructions ?Recorded ?Confirmed ?Last Taken ?Type budesonide 160 mcg-glycopyr 9 2 inh inhalation BID 09/20/21 12/11/25 12/11/25 History mcg-formot 4.8 mcg/actuation HFA inhaler (Breztri Aerosphere) warfarin 5 mg tablet 2.5 mg PO DAILY 02/25/21 04/18/25 05/25/24 History omeprazole 40 mg capsule,delayed 40 mg PO DAILY 02/03/22 04/18/25 04/18/25 History release spironolactone 50 mg tablet 50 mg PO DAILY #90 tabs 01/16/24 04/18/25 04/18/25 Rx albuterol sulfate 90 mcg/actuation 2 puff inhalation Q5W PRN 05/25/24 04/18/25 Unknown History aerosol inhaler (Ventolin HFA) Shortness Of Breath metoprolol tartrate 50 mg tablet 50 mg PO BID 05/25/24 04/18/25 04/18/25 History oxycodone-acetaminophen 5 mg-325 1 tab PO Q6H PRN Pain 05/25/24 04/18/25 04/18/25 History mg tablet trazodone 100 mg tablet 100 mg PO BEDTIME 05/25/24 04/18/25 04/18/25 History warfarin 7.5 mg tablet 7.5 mg PO DAILY 05/25/24 04/18/25 04/17/25 History furosemide 20 mg tablet 20 mg PO DAILY 08/02/24 04/18/25 04/17/25 History amlodipine 5 mg tablet 2.5 mg (1/2 x 5 mg) PO DAILY #90 04/01/25 04/18/25 04/17/25 Rx tabs duloxetine 60 mg capsule,delayed 60 mg PO DAILY 04/18/25 04/18/25 04/18/25 History release Allergies Allergy/AdvReac Type Severity Reaction Status Date / Time No Known Allergies Allergy Verified 04/18/25 09:25 PFSH Acute PFSH: Medical History (Updated 04/18/25 @ 12:20 by Nayeli Huggins NP) DIMA (obstructive sleep apnea) LBBB (left bundle branch block) GERD (gastroesophageal reflux disease) Tobacco abuse Pulmonary nodule GI bleed COPD (chronic obstructive pulmonary disease) Hypertension CAD (coronary artery disease) Hypertrophic cardiomyopathy Surgical History H/O mitral valve replacement with mechanical valve AICD (automatic cardioverter/defibrillator) present 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 Family History Other CAD (coronary artery disease) Cardiomyopathy Hypertension Social History Smoking and tobacco/nicotine status: current every day tobacco/nicotine user cigarettes Alcohol intake: current Alcohol intake frequency: 0-2 Drinks per Day Substance/Drug Use: never Vitals/I&O/Wt Last Vital Signs Temp 98.1 F 04/18/25 11:50 Pulse 70 04/18/25 11:50 Resp 18 04/18/25 11:50 BP 159/81 04/18/25 11:50 Pulse Ox 100 04/18/25 11:50 O2 Del Method Room Air 04/18/25 09:45 04/17/25 04/18/25 04/18/25 22:59 06:59 14:59 Intake Total 0 / 0 Balance 0 / 0 Weight last 48 hrs Weight 108.862 kg Physical Exam Narrative: General: A&Ox4 , sitting up on side of the bed on RA. HEENT: Normo-cephalic, atraumatic, grossly unremarkable exam Cardio: Paced rhythm, normal S1-S2 w/o any murmurs, rubs, or gallops Respiratory: Diminished to anterior bilateral lobes on auscultation w/o any wheezes, rhonchi GI: Abd soft, non-tender, non-distended, normo-active bowel sounds present Neuro: Moves all extremities, no sensory deficits, Normal speech Behavior: Appropriate and cooperative Extremities: Adequate palpable pulses. Full ROM. 3+ edema to bilateral lower extremities Data 04/18/25 10:07 04/18/25 09:40 Other Labs: 04/18: CXR: reviewed and results as follows: Stable chest without acute abnormality. A&P Assessment and plan 1. CHF (congestive heart failure): 2. Anemia: 3. H/O mitral valve replacement with mechanical valve: 4. DIMA (obstructive sleep apnea): 5. LBBB (left bundle branch block): 6. Chronic obstructive pulmonary disease, unspecified COPD type: 7. Coronary artery disease involving [place] coronary artery of [place] heart without angina pectoris: 8. Hypertrophic cardiomyopathy: Plan: Acute on Chronic Diastolic CHF 09/2024 Echo demonstrated: mechanical valve functioning appropriately ejection fraction of 55 to 60% BNP 4006 Imaging as per above V/S q4hr IVP Lasix 40mg q12hr Continue home medication Supplement magnesium and potassium as indicated Dly wt, Strict I&Os FR 1200mL Caridac diet CBC, CMP, Mag dly Anemia Found incidentally, w/o signs of active bleeding in ED. Admission accepted for further workup and manuel.gement RBC 2.50, Hgb 6.30, Hct 20.8, MCH 26.4, RDW 18.6 Iron 14, TIBC 481, Saturation 2.9% INR 1.91, PT 23.10 Fall precautions Cardiac monitoring Avoid NSAIDs Initiate heparin drip, hold warfarin- follow H&H. If H&H continues to drop consider consulting general surgery for poss EGD and consider CT. RBC transfusion x2, f/u H&H Protonix IVP 40mg q12hr CBC, CMP dly HTN Pt reports hypotensive episode at home lowest being 86/60 Hold home antihypertensive medications, although blood pressure likely to rebound post transfusion- likely to resume. Monitor BP- V/S q4hr CAD Hx of MVR w/ mechanical valve LBBB ICD placement (biventricular) 09/2024 Echo demonstrated: mechanical valve functioning appropriately ejection fraction of 55 to 60% Holding Warfarin, initiate heparin drip. Monitor H&H. Resume cardioprotective medications. Continuous cardiac monitoring COPD DIMA Does not wear CPAP at home Monitor pulse ox O2 protocol Continue home albuterol inhaler PRN, budesonide inhalation BID Depression Anxiety Continue home medication duloxetine 60mg PO dly, trazodone 100mg PO dly CODE STATUS: Full Code GI prophylaxis: IVP Protonix 40 mg q12hr VTE prophylaxis: SCDs, Heparin drip PDMP PDMP Reviewed: Not Reviewed Attestations Medical Necessity Statement*: Admission over 2 midnights will will be necessary for medical management of acute on chronic diastolic CHF and acute anemia on anticoagulation Coding Level of Care Code Acute Code for Chg Fwd Diagnoses CHF (congestive heart failure) I50.9 Anemia D64.9 H/O mitral valve replacement with mechanical valve Z95.2 DIMA (obstructive sleep apnea) G47.33 LBBB (left bundle branch block) I44.7 Chronic obstructive pulmonary disease, unspecified COPD type J44.9 COPD type: unspecified COPD Coronary artery disease involving [place] coronary artery of [place] heart without angina pectoris I25.10 Associated angina: without angina Coronary Disease-Associated Artery/Lesion type: [place] artery [place] vs. transplanted heart: pechanga heart Hypertrophic cardiomyopathy I42.2
[2025-04-18] MEDS: HYDROcodone-acetaminophen 5-325 mg Tablet 1 TAB PO (12:10)
[2025-04-18 12:21] LABS: INR 1.91 (0.8-1.2); Prothrombin Time 23.10 SECONDS (12.1-14.9)
== END 2025-04-18 15:55 | disposition still patient (30) ==
PROVIDERS: Emergency Provider Emergency Medicine; PCP Nurse Practitioner Family
DX: D64.9 Anemia, unspecified (principal); I11.0 Hypertensive heart disease with heart failure; I50.9 Heart failure, unspecified; J44.9 Chronic obstructive pulmonary disease, unspecified; I25.10 Atherosclerotic heart disease of native coronary artery without angina pectoris; F17.210 Nicotine dependence, cigarettes, uncomplicated
CPT/HCPCS: 36415; 36430; 71045; 80053; 83540; 83550; 83735; 83880; 85014; 85018; 85025; 85610; 86850; 86900; 86920; 93005; 96374; 99285; 99291; 99292; J1938; J9999; P9016

== ENCOUNTER 2025-04-30 07:53 | Oncology outpatient (recurring) (ONCR) | payer MEDICARE, SELFPAY | END 2025-05-08 23:59 | disposition home or self-care (01) | PROVIDERS: PCP Nurse Practitioner Family; Visit Provider Internal Medicine Medical Oncology | DX: D50.9 Iron deficiency anemia, unspecified (principal); F17.210 Nicotine dependence, cigarettes, uncomplicated; F10.90 Alcohol use, unspecified, uncomplicated; Z95.2 Presence of prosthetic heart valve; Z79.01 Long term (current) use of anticoagulants; Z79.899 Other long term (current) drug therapy | CPT/HCPCS: 99204 ==